=== PATIENT | male | born 1990 | race Caucasian/White ===

== ENCOUNTER 2017-10-30 11:46 | Emergency (ER) | payer OTHER ==
[~2017-10-30] VITALS: Ht 188 cm; Wt 72.6 kg
[2017-10-30] MEDS ORDERED: CYCL10 PO (13:58)
== END 2017-10-30 14:08 | disposition home or self-care (01) ==
LOC: ER 11:46
DX: S39.92XA Unspecified injury of lower back, initial encounter (principal); F17.210 Nicotine dependence, cigarettes, uncomplicated; V43.63XA Car passenger injured in collision with pick-up truck in traffic accident, initial encounter
CPT/HCPCS: 96372; 99283; J1885